=== PATIENT | male | born 1970 | race Caucasian/White ===

== ENCOUNTER 2023-08-18 21:00 | Inpatient (IN) | payer BC, SELFPAY ==
[2023-08-18 14:22] VITALS: BP 137/105
[2023-08-18 15:00] LABS: Urine Albumin Trace (Neg - Trace); Urine Bilirubin 1+ (Negative); Urine Character Clear (Clear); Urine Color Yellow; Urine Glucose 3+ (Negative); Urine Ketone 3+ (Negative); Urine Leukocyte Negative (Negative); Urine Nitrite Negative (Negative); Urine Occult Blood Negative (Negative); Urine Urobilinogen Negative (Neg - 1+)
[2023-08-18 15:44] VITALS: BMI 31.2
[2023-08-18 15:51] VITALS: BP 149/96
--- NOTE | 2023-08-18 15:51 | ED.GENMED ---
History of Present Illness
<Nicole Laurent WALLPAPER PRINTER - Last Filed: 08/18/23 22:34>
General
Chief Complaint: Abdominal Pain
Source: patient
Exam Limitations: none
Time Seen by Provider: 08/18/23 15:50
Nursing documentation reviewed up to this point in time: agreed with
Travel History
Have you had any contact with someone who has COVID-19?: No
Do you have any symptoms of coronavirus? Fever > 100 degrees, chills, cough, shortness of breath, sore throat, loss of taste or smell, muscle aches, or headache?: No
History of Present Illness
History of Present Illness:
53-year-old male with history of HTN, HLD, NIDDM presents stating 4 days ago he had a sudden onset 10/10 sharp pain across his lower abdomen. 2 days ago he awakened and the pain was gone but within a few hours it suddenly came back and has been
waxing and waning since. He had a normal bowel movement this morning. He took ibuprofen with no relief. He has no urinary symptoms. At this time the pain is 3/10. It is worse with cough and movement. He has left groin pain also. Denies
testicular pain. Denied fever, n/v/c/d
Past History
<Nicole Laurent, WALLPAPER PRINTER - Last Filed: 08/18/23 22:34>
Past History
ED Past Medical History: HTN, Hypercholesterolemia and NIDDM
ED Past Surgical History: None
Social History
Tobacco: Non-smoker
Alcohol: Occasional
Personal:
Living: with family
Employment: Employed
Review of Systems
<Nicole Laurent, WALLPAPER PRINTER - Last Filed: 08/18/23 22:34>
Review of Systems
Allergies reviewed?: Yes
All Other Systems: ROS reviewed and negative except as documented in HPI and ROS
Constitutional: Denies fever or chills
Respiratory: Denies trouble breathing
Cardiac: Denies chest pain
ABD/GI: Reports abdominal pain; Denies nausea, vomiting, diarrhea, constipated, bloody stools, black stools or anorexia
: Reports no symptoms
Musculoskeletal: Reports no symptoms
Skin: Reports no symptoms
Neurological: Reports no symptoms
Phy Exam
<Nicole Laurent, WALLPAPER PRINTER - Last Filed: 08/18/23 22:34>
Physical Exam
Physical Exam:
GENERAL: No acute distress. A&Ox3.
CONSTITUTIONAL: Afebrile.
EYES: Clear, conjunctivae normal
ENMT: moist mucus membranes, Pharynx nl
RESPIRATORY: Regular respirations, nonlabored, lungs clear.
CARDIOVASCULAR: Regular rate and rhythm, no murmurs, no rubs.
GI: Soft, mild tenderness across lower abdomen, tender left groin area to palpation. Nondistended, hypoactive bowel sounds.
MUSCULOSKELETAL: Moves with ease. Well perfused.
SKIN: Warm, dry, pink
PSYCH: Normal mood and affect. Well kept, interactive and appropriate
NEUROLOGIC: Awake, alert and oriented. No focal neurological deficits
Course
<Nicole Laurent, WALLPAPER PRINTER - Last Filed: 08/18/23 22:34>
Orders/Labs/Results
Orders:
Orders
08/18/23 Breakfast
NPO
Allow oral meds: Yes
Allow clear liquids: Sips of Clears
NPO with Ice Chips: Yes
08/18/23 14:30
Urinalysis Reflex To Culture Urgent
Date Specimen was Collected: 08/18/23
Time Specimen was Collected: 14:27
08/18/23 15:50
0.9% Sodium Chloride 1000 ml [Nss] 1,000 ml IV BOLUS
08/18/23 15:51
CT Abd/Pel (IV only)-DH only Urgent
Comment:
Reason For Exam: pain across lower abdomen
08/18/23 16:13
CMP [Comprehensive Metabolic Panel] Urgent
Complete Blood Count/With Diff Urgent
08/18/23 19:43
MetroNIDAZOLE 500 MG/100 ML [Flagyl 500 mg] 100 ml IV NOW
08/18/23 20:15
Piperacillin/Tazo 3.375 Gram [Zosyn] 3.375 gram in 50 ml IV NOW
08/18/23 20:16
ColoRectal Surgery Consult Urgent
Consulting Provider: Jose David Medrano
Was physician already notified: Yes
Reason for consult: severe diverticulitis with micro perf
08/18/23 20:24
Admit/Transfer Patient As Directed
Co-Sign Provider:
Level of Care: Inpatient admission
Assign to:: Medical/Surgical
Physician / Group: Htay
Diagnosis: Diverticulitis
Reason for Hospitalization: IV abx, Colorectal Consult
Expected length of stay greater than two midnights?: Yes
ELOS- Estimated Length of Stay in days: 3
I certify the patient meets the requirements for IP care: Yes
08/18/23 20:26
Code Status As Directed
Resuscitation Status: Full Code
08/18/23 21:51
0.9% Sodium Chloride 1000 ml [Nss] 1,000 ml IV 100 mls/hr
0.9% Sodium Chloride [Nss (Preservative Free)] See Protocol IV PRN PRN
Acetaminophen [Tylenol] 650 mg PO Q4HPRN PRN
Dextrose 50%-Water [Dextrose 50% Syringe] 12.5 grams IV [id number] PRN
FOLic ACID [Folvite] 1 mg 0.9% Sodium Chloride 50 ml [Nss] 50 ml IV DAILYPRN
Glucagon [GlucaGen] 1 mg IM PRN PRN
HYDROmorphone [Dilaudid] 0.25 mg IV Q3HPRN PRN
Lorazepam [Ativan] 1 mg IV Q1HPRN PRN
Lorazepam [Ativan] 1 mg PO Q2HPRN PRN
Lorazepam [Ativan] 2 mg IV Q1HPRN PRN
Ondansetron Injectable [Zofran] 4 mg IV Q6HPRN PRN
08/18/23 21:51
DIETARY CONSULT Routine
Reason for Consult: Nutrition support, possible refeeding guidelines
Activity As Directed
Activity Level: Out of Bed-Early Mobility
With Assistance
Bedside Glucose Monitoring As Directed
Frequency: AC&HS
Comment: Change to q6h if pt on TPN, tube feeding or not eating
I&O [Intake/ Output] As Directed
Frequency: q12h
MSAS SCORE As Directed
MSAS Score 0-4: Repeat MSAS every 2 hours until 0-4 for three consecutive assessments, then every 4 hours x 48
hours.
MSAS Score 5-7: For MILD withdrawl symptoms. Repeat MSAS and RASS every 2 hours
MSAS Score 8-11: For MODERATE withdrawal symptoms. Repeat MSAS and RASS every 1 hour. Consider ICU or IMU
level of care.
MSAS Score > 11: For SEVERE withdrawal symptoms. Repeat MSAS and RASS every 1 hour. Notify provider, consider
ICU level of care.
MSAS Additional Instructions: If no improvement or no decrease in score from severe to moderate within 12
hours, consult psychiatry
MSAS Notify Provider: Notify provider if patient requires more than 10 mg of Lorazepam in eight hour period.
Vital Signs As Directed
Frequency: Per unit guidelines
DX Deep Vein Thrombosis Video Routine
08/18/23 22:00
Melatonin 5 mg PO HS
08/19/23 04:00
Piperacillin/Tazo 3.375 Gram [Zosyn] 3.375 gram in 50 ml IV Q6H
08/19/23 06:00
Complete Blood Count/No Diff IN AM
Comprehensive Metabolic Panel IN AM
Glycohemoglobin (HgbA1c) IN AM
Magnesium IN AM
PTT IN AM
Phosphorus IN AM
Prothrombin Time IN AM
08/19/23 07:30
Insulin Aspart Corrective Low [Novolog Flexpen-Low Resistance] See Protocol SC AC
08/19/23 08:00
FOLic ACID [Folvite] 1 mg PO DAILY
Lisinopril [Zestril] 40 mg PO DAILY
Thiamine Injection 200 mg IV Q12
08/19/23 10:00
Case Management Consult Once
Case Management Consult: Other
Comment: Substance abuse counseling
08/19/23 18:00
Enoxaparin Sodium [Lovenox] 40 mg SC QPM
08/22/23 08:00
Thiamine HCl [Vitamin B1] 100 mg PO BID
Abnormal Lab Results
08/18/23 08/18/23
14:30 16:13
WBC 13.6 H 10^3/uL
(4.8-10.8)
MCH 31.8 H pg
(27.0-31.0)
Abs Immat Gran (auto) 0.1 H 10^3/uL
(0-0.05)
Absolute Neuts (auto) 9.1 H 10^3/uL
(1.4-6.5)
Absolute Monos (auto) 1.8 H 10^3/uL
(0.1-0.6)
Lymphocytes % 18.2 L %
(20.5-51.1)
Monocytes % 13.2 H %
(1.7-9.3)
Sodium 130 L mmol/L
(135-145)
Carbon Dioxide 19 L mmol/L
(22-30)
Creatinine 0.5 L mg/dL
(0.7-1.3)
Glucose 287 H mg/dl
(70-99)
Total Bilirubin 1.5 H mg/dl
(0.2-1.3)
Urine Ketones 3+ A
(Negative)
Urine Bilirubin 1+ A
(Negative)
Urine Glucose 3+ A
(Negative)
08/18/23 16:13
08/18/23 16:13
Vital Signs
Initial and Last Documented VS:
Initial Vital Signs
Temp Pulse Resp BP Pulse Ox
98.1 F 120 20 137/105 98
08/18/23 14:22 08/18/23 14:22 08/18/23 14:22 08/18/23 14:22 08/18/23 14:22
Last Documented Vital Signs
Temp Pulse Resp BP Pulse Ox
98.9 F 107 18 158/94 95
08/18/23 22:00 08/18/23 22:00 08/18/23 22:00 08/18/23 22:00 08/18/23 22:00
Spool Maker consulted with Physician
Spool Maker consulted with physician?: Yes
Name of Physician Consulted: Sonya
<Valeriano Hassan, DO - Last Filed: 08/18/23 20:04>
Orders/Labs/Results
Orders:
Orders
08/18/23 Breakfast
NPO
Allow oral meds: Yes
Allow clear liquids: Sips of Clears
NPO with Ice Chips: Yes
08/18/23 14:30
Urinalysis Reflex To Culture Urgent
Date Specimen was Collected: 08/18/23
Time Specimen was Collected: 14:27
08/18/23 15:50
0.9% Sodium Chloride 1000 ml [Nss] 1,000 ml IV BOLUS
08/18/23 15:51
CT Abd/Pel (IV only)-DH only Urgent
Comment:
Reason For Exam: pain across lower abdomen
08/18/23 16:13
CMP [Comprehensive Metabolic Panel] Urgent
Complete Blood Count/With Diff Urgent
08/18/23 19:43
MetroNIDAZOLE 500 MG/100 ML [Flagyl 500 mg] 100 ml IV NOW
08/18/23 20:15
Piperacillin/Tazo 3.375 Gram [Zosyn] 3.375 gram in 50 ml IV NOW
08/18/23 20:16
ColoRectal Surgery Consult Urgent
Consulting Provider: Jose David Medrano
Was physician already notified: Yes
Reason for consult: severe diverticulitis with micro perf
08/18/23 20:24
Admit/Transfer Patient As Directed
Co-Sign Provider:
Level of Care: Inpatient admission
Assign to:: Medical/Surgical
Physician / Group: Rayy
Diagnosis: Diverticulitis
Reason for Hospitalization: IV abx, Colorectal Consult
Expected length of stay greater than two midnights?: Yes
ELOS- Estimated Length of Stay in days: 3
I certify the patient meets the requirements for IP care: Yes
08/18/23 20:26
Code Status As Directed
Resuscitation Status: Full Code
08/18/23 21:51
0.9% Sodium Chloride 1000 ml [Nss] 1,000 ml IV 100 mls/hr
0.9% Sodium Chloride [Nss (Preservative Free)] See Protocol IV PRN PRN
Acetaminophen [Tylenol] 650 mg PO Q4HPRN PRN
Dextrose 50%-Water [Dextrose 50% Syringe] 12.5 grams IV [id number] PRN
FOLic ACID [Folvite] 1 mg 0.9% Sodium Chloride 50 ml [Nss] 50 ml IV DAILYPRN
Glucagon [GlucaGen] 1 mg IM PRN PRN
HYDROmorphone [Dilaudid] 0.25 mg IV Q3HPRN PRN
Lorazepam [Ativan] 1 mg IV Q1HPRN PRN
Lorazepam [Ativan] 1 mg PO Q2HPRN PRN
Lorazepam [Ativan] 2 mg IV Q1HPRN PRN
Ondansetron Injectable [Zofran] 4 mg IV Q6HPRN PRN
08/18/23 21:51
DIETARY CONSULT Routine
Reason for Consult: Nutrition support, possible refeeding guidelines
Activity As Directed
Activity Level: Out of Bed-Early Mobility
With Assistance
Bedside Glucose Monitoring As Directed
Frequency: AC&HS
Comment: Change to q6h if pt on TPN, tube feeding or not eating
I&O [Intake/ Output] As Directed
Frequency: q12h
MSAS SCORE As Directed
MSAS Score 0-4: Repeat MSAS every 2 hours until 0-4 for three consecutive assessments, then every 4 hours x 48
hours.
MSAS Score 5-7: For MILD withdrawl symptoms. Repeat MSAS and RASS every 2 hours
MSAS Score 8-11: For MODERATE withdrawal symptoms. Repeat MSAS and RASS every 1 hour. Consider ICU or IMU
level of care.
MSAS Score > 11: For SEVERE withdrawal symptoms. Repeat MSAS and RASS every 1 hour. Notify provider, consider
ICU level of care.
MSAS Additional Instructions: If no improvement or no decrease in score from severe to moderate within 12
hours, consult psychiatry
MSAS Notify Provider: Notify provider if patient requires more than 10 mg of Lorazepam in eight hour period.
Vital Signs As Directed
Frequency: Per unit guidelines
DX Deep Vein Thrombosis Video Routine
08/18/23 22:00
Melatonin 5 mg PO HS
08/19/23 04:00
Piperacillin/Tazo 3.375 Gram [Zosyn] 3.375 gram in 50 ml IV Q6H
08/19/23 06:00
Complete Blood Count/No Diff IN AM
Comprehensive Metabolic Panel IN AM
Glycohemoglobin (HgbA1c) IN AM
Magnesium IN AM
PTT IN AM
Phosphorus IN AM
Prothrombin Time IN AM
08/19/23 07:30
Insulin Aspart Corrective Low [Novolog Flexpen-Low Resistance] See Protocol SC AC
08/19/23 08:00
FOLic ACID [Folvite] 1 mg PO DAILY
Lisinopril [Zestril] 40 mg PO DAILY
Thiamine Injection 200 mg IV Q12
08/19/23 10:00
Case Management Consult Once
Case Management Consult: Other
Comment: Substance abuse counseling
08/19/23 18:00
Enoxaparin Sodium [Lovenox] 40 mg SC QPM
08/22/23 08:00
Thiamine HCl [Vitamin B1] 100 mg PO BID
Abnormal Lab Results
08/18/23 08/18/23
14:30 16:13
WBC 13.6 H 10^3/uL
(4.8-10.8)
MCH 31.8 H pg
(27.0-31.0)
Abs Immat Gran (auto) 0.1 H 10^3/uL
(0-0.05)
Absolute Neuts (auto) 9.1 H 10^3/uL
(1.4-6.5)
Absolute Monos (auto) 1.8 H 10^3/uL
(0.1-0.6)
Lymphocytes % 18.2 L %
(20.5-51.1)
Monocytes % 13.2 H %
(1.7-9.3)
Sodium 130 L mmol/L
(135-145)
Carbon Dioxide 19 L mmol/L
(22-30)
Creatinine 0.5 L mg/dL
(0.7-1.3)
Glucose 287 H mg/dl
(70-99)
Total Bilirubin 1.5 H mg/dl
(0.2-1.3)
Urine Ketones 3+ A
(Negative)
Urine Bilirubin 1+ A
(Negative)
Urine Glucose 3+ A
(Negative)
08/18/23 16:13
08/18/23 16:13
Vital Signs
Initial and Last Documented VS:
Initial Vital Signs
Temp Pulse Resp BP Pulse Ox
98.1 F 120 20 137/105 98
08/18/23 14:22 08/18/23 14:22 08/18/23 14:22 08/18/23 14:22 08/18/23 14:22
Last Documented Vital Signs
Temp Pulse Resp BP Pulse Ox
98.9 F 107 18 158/94 95
08/18/23 22:00 08/18/23 22:00 08/18/23 22:00 08/18/23 22:00 08/18/23 22:00
<Nicole Laurent, WALLPAPER PRINTER - Last Filed: 08/18/23 22:34>
MDM/Problems Addressed
Differential Diagnosis Includes:
intermittent bowel torsion, hernia
MDM/Problems Addressed:
53-year-old male with history of HTN, HLD, NIDDM presents stating 4 days ago he had a sudden onset 10/10 sharp pain across his lower abdomen. 2 days ago he awakened and the pain was gone but within a few hours it suddenly came back and has been
waxing and waning since. He had a normal bowel movement this morning. He took ibuprofen with no relief. He has no urinary symptoms. At this time the pain is 3/10. It is worse with cough and movement. He has left groin pain also. Denies
testicular pain. Denied fever, n/v/c/d
Afebrile, NAD
08/18/2023 1659 PM
CBC: WBC 13.6
CMP: Sodium 130
UA: +3 ketones, +3 glucose otherwise negative
08/18/2023 1945 PM
CAT scan abdomen pelvis with IV only contrast radiology text read: severe diverticulitis of the sigmoid colon. Small focus of contained extra luminal air anterior in the pelvis. Two small foci of free air along the superior liver in the right of
quadrant.
08/18/2023 2018 PM
Discussed case with Dr. Hassan who spoke with patient.
Stable, comfortable 53-year-old with severe diverticulitis with microperforation.
Plan: Admit, colorectal surgery consulted. Hospitalist notified of admission.
<Nicole Laurent, WALLPAPER PRINTER - Last Filed: 08/18/23 22:34>
*Critical Care Note
Total Time (30-74mins, 75-104mins- exclusive of procedures): Not Applicable
ED Attending Note
<Nicole Laurent WALLPAPER PRINTER - Last Filed: 08/18/23 22:34>
-
Portions of this chart may have been created with voice recognition software.� Occasional wrong word or��sound alike� substitutions may have occurred due to the inherent limitations of voice recognition software.
<Valeriano Hassan DO - Last Filed: 08/18/23 20:04>
ED Attending Note
Patient seen and examined by attending physician: Yes
I performed the substantive portion of visit, reviewed & personally made and approve the management plan that is documented in note by myself or SWATI.: Yes
ED Attending Note:
Seen with WALLPAPER PRINTER examined independently 53-year-old male third episode of diverticulitis blood sugars are up has been on metformin CAT scan reported, believe will be prudent to admit him to the hospital IV antibiotics serial abdominal exams
consideration for specialty consultation
Discharge Plan
Departure
Patient Disposition: Admit
Admit to: Med/Surg
Presentation/result/management discussed w/ accepting MD/DO: Hospitalist
Condition: Serious
Discharge Problem:
Abdominal pain
Interventions
Interventions:
*Risk Screen - Suicide Last Done: 08/18/23 22:24
*General Assessment Last Done: 08/18/23 14:22
*Neglect/Abuse Screening Last Done: 08/18/23 14:22
ED- Fall Risk Assessment Last Done: 08/18/23 15:44
*ED COVID-19 Vaccine History Last Done: 08/18/23 22:18
*Nursing Disposition Last Done: 08/18/23 22:01
DF-Pbwxah-Zpwxsqiscv Assessment Last Done: 08/18/23 15:44
Discharge Date and Time
Discharge Date/Time: 08/18/23 22:01
[2023-08-18 16:00] VITALS: BP 127/102
[2023-08-18] MEDS: NSS 1000 IV ×2 (16:14→22:30)
[2023-08-18 16:36] LABS: % Basophils 0.5 % (0-2); % Eosinophils 0.7 % (0-6); % Immature Granulocytes 0.4 % (0-0.5); % Lymphocytes 18.2 % (20.5-51.1); % Monocytes 13.2 % (1.7-9.3); Absolute Basophils 0.1 10^3/uL (0-0.2); Absolute Eosinophils 0.1 10^3/uL (0-0.7); Absolute Immature Granulocytes 0.1 10^3/uL (0-0.05); Absolute Lymphocytes 2.5 10^3/uL (1.2-3.4); Absolute Monocytes 1.8 10^3/uL (0.1-0.6); Absolute Neutrophils 9.1 10^3/uL (1.4-6.5); Hematocrit 43.4 % (39.0-52.0); Hemoglobin 15.6 g/dL (13.0-18.0); Mean Corp Hgb Conc. 35.9 g/dL (33.0-37.0); Mean Corpuscular Hgb 31.8 pg (27.0-31.0); Mean Corpuscular Volume 88.4 fL (80.0-94.0); Mean Platelet Volume 10.1 fL (7.4-10.4); Nucleated Red Blood Cells % 0 % (-); Platelet Count 232 10^3/uL (130-400); Red Blood Cell Count 4.91 10^6/uL (4.70-6.10); Red Cell Dist. Width 11.7 % (11.5-14.5); White Blood Cell Count 13.6 10^3/uL (4.8-10.8)
[2023-08-18 16:52] LABS: ALT (SGPT) 27 U/L (0-50); AST (SGOT) 21 U/L (17-59); Alkaline Phosphatase 79 U/L (38-126); Blood Urea Nitrogen 13 mg/dl (9-20); Calcium 9.2 mg/dl (8.4-10.2); Carbon Dioxide 19 mmol/L (22-30); Chloride 100 mmol/L (98-107); Estimated Creatinine Clearance > 125 ml/min; Glucose 287 mg/dl (70-99); Potassium 4.1 mmol/L (3.5-5.1); Sodium 130 mmol/L (135-145); Total Bilirubin 1.5 mg/dl (0.2-1.3); Total Protein 6.5 g/dl (6.3-8.2); eGFR > 60.00
[2023-08-18 17:00] VITALS: BP 138/83
--- NOTE | 2023-08-18 20:31 | HPS.HSE ---
Addendum entered and electronically signed by Mansoor Arguello MD 08/18/23 21:14:
I saw and examined the patient.
The MEMBER [employer] or PA's note was reviewed and I agree with the note.
Comment:
HPI
53M Diabetic, remote HX sigmoid diverticulitis 15 yrs ago pw acute lower abdominal pain since Thursday night, improved o Thursday. Then recurrence of abdominal pain. No vomiting. No fever.
Other HX HTN, HLD.
Forme smoker at age of 20
Daily Wine 4- 5 a night
Sinus tachy on arrival. Normotensive
Not toxic looking
Lower abdominal temderness
No signs of peritonism
WCC 13.5
Na 130 corrcted Na 13 for BG 287
CO2 19
nl Cr
TB 1.5
[address] :
severe changes of diverticulitis involving the sigmoid colon in the central and left pelvis. There is a small focus of contained extraluminal air anteriorly within the pelvis. There are small foci of free intraperitoneal air along the superior
margin of the liver in the right upper quadrant.
A & P
Second episode of acute sigmoid diverticulitis complicated probably microperforation .
POS Small foci of free intraperitoneal air
Remote HX sigmoid diverticulitis 15 yrs ago
HX NIDDM
HTN
HLD
- NPO and IVF
- Empiric IV Zosyn
- PRN Narcotic analgesia
- PRN anti emetics
- cont Lisinopril
- add IS low
- CRS consulted
ETOH dily use disorder of 4-5 glasses wine
nl LFTs
- MSAS
DVT Px LMWH
IP MS
Full code
Original Note:
Family Physician
-
Family Physician: Adair Clayton, DO
Chief Complaint
-
Abdominal Pain
History of Present Illness
Pt is a 53yo M w/ a PMH of HTN, HLD, DMII, Anxiety, and Alcohol Use Disorder who is presenting to the ED c/o lower abdominal pain x 5 days. He states he was making dinner on Thursday night and experienced sudden onset penile pain which he described as
a sharp, shooting pain that was an 8/10 at onset and improved to a 3/10 by Thursday night. He states that Thursday he began feeling nauseous but did not vomit and admits to chills that day as well which have since resolved. He states the pain began
radiating to the lower abdomen on Thursday night and states it is a 1/10 at rest and a 3/10 at worst with movement. He denies similar episodes. He denies fever, vomiting, constipation or diarrhea. He denies prior episode of diverticulitis. He admits
to having had Cologuard performed, but never a colonoscopy.
Medical History
Past Medical History
Past Medical History: Reports Other
Additional Past Medical History:
Essential Hypertension
Hyperlipidemia
Diabetes Mellitus, Type II
Past Surgical History: Reports None
Social History
Tobacco: Non-smoker
Alcohol: Daily (4-5 glasses of wine per night)
Family History
Family History: Not pertinent
Allergies / Home Medications
Allergies reflects when Allergies were last updated in [employer].
Home Medications with original date entered in [employer]
Allergy/Medication List:
Allergies
Allergy/AdvReac Type Severity Reaction Status Date / Time
No Known Allergies Allergy Unverified 08/18/23 14:22
Home Medications
atorvastatin 20 mg tablet (Lipitor) 20 mg PO DAILY 08/18/23
ibuprofen 200 mg tablet (Advil) 400 mg PO Q6H PRN mild pain 08/18/23
ibuprofen-diphenhydramine citrate 200 mg-38 mg tablet (Advil PM) 1 cap PO HSPRN PRN sleep 08/18/23
lisinopril 40 mg tablet 40 mg PO DAILY 08/18/23
lorazepam 0.5 mg tablet 0.5 mg PO DAILYPRN PRN anxiety 08/18/23
metformin 500 mg tablet,extended release 24 hr 500 mg PO DAILY 08/18/23
Review of Systems
-
A 12 point ROS was completed and negative except as noted: Yes
Constitutional: Reports Chills
Respiratory: Denies Cough or Trouble Breathing
Cardiac: Denies Chest Pain or Palpitations
Abdomen/GI: Reports See HPI
Physical Exam
Vital Signs
Vital Signs
Temp Pulse Resp BP Pulse Ox
98.1 F 104 23 138/83 98
08/18/23 14:22 08/18/23 17:30 08/18/23 17:30 08/18/23 17:00 08/18/23 14:22
Physical Exam
General: Comfortable and Conversant
HEENT: Anicteric and Moist mucous membranes
Respiratory: Clear and Non Labored Respirations
Cardiac: S1/S2, Regular Rhythm and Tachycardia (Slightly)
GI: Soft and Tender (Bilateral lower quadrants left greater than right)
Rectal: Deferred by Provider
Musculoskeletal: No Clubbing, No Cyanosis and No Edema
Skin: Warm and Dry
Neuro: Awake, Alert, Oriented and Nonfocal/grossly intact
Psych: Calm
Laboratory Results
-
08/18/23 16:13
08/18/23 16:13
Laboratory Results
Total Bilirubin 1.5 mg/dl (0.2-1.3) H 08/18/23 16:13
AST 21 U/L (17-59) 08/18/23 16:13
ALT 27 U/L (0-50) 08/18/23 16:13
Alkaline Phosphatase 79 U/L (38-126) 08/18/23 16:13
Data Reviewed
-
CT Scan: Report Reviewed by me
Lab Data: Labs Reviewed by me
Impression/Plan
-
Sepsis secondary to Acute Diverticulitis
-Consult Colorectal Surgery
-Continue NPO/IVFs
-Continue Zosyn
Essential Hypertension
-Continue lisinopril with hold parameters
Hyperlipidemia
-Hold atorvastatin until able to resume diet
Diabetes Mellitus, Type II
-Hold metformin
-Monitor sugars and continue coverage insulin
Alcohol Use Disorder
-Continue thiamine and folic acid
-Continue alcohol withdrawal protocol
DVT proph: Lovenox
Code Status: Full Code
[2023-08-18] MEDS: ZOSYN 50 IV (21:36)
[2023-08-18 22:00] VITALS: BP 158/94; BMI 31.2
--- NOTE | 2023-08-18 22:13 | CON.CRS ---
Consultation
-
Performing Provider: Jose David Medrano MD
Reason for Consultation: perforated diverticulitis
Medical History
-
History of Present Illness:
Patient is a 53-year-old male with a PMH of HTN, HLD, daily EtOH (admits to being an alcoholic and drinking about 4 glasses of wine per day; he knows he should not but continues; has quit for period of 1 to 2 months without symptoms of withdrawal),
prior episode of diverticulitis 15 years ago who presents with acute sudden onset abdominal pain 4 days ago. The pain was in the lower abdomen and radiated to the groin. The pain initially got better but then returned on Thursday, so he went to see
his PCP yesterday. He was recommended to be evaluated in the ED. He denies any fevers, N/V, urinary symptoms, change in bowel habits. In the ED, WBC was 13.6, CT showing acute severe diverticulitis with localized contained perforation as well as
flecks of air over the liver. He was initially tachycardic at 120 but improved to the low 100s. He has never had a colonoscopy. He had a Cologuard test in 2020 which was negative.
Past Medical History
Past Medical History: Other (As above)
Past Surgical History: Other (Cervical spine fusion)
Social History
Tobacco: Former Smoker (Smoked for 9 years, 0.5 PPD, quit at age 21)
Alcohol: Daily (4 drinks per day, admits to being an alcoholic)
Employment: Employed
Family History
Family History: Other (Cousin with prostate cancer, grandfather with leukemia)
Allergies / Home Medications
Allergy/AdvReac Type Severity Reaction Status Date / Time
No Known Allergies Allergy Unverified 08/18/23 14:22
Medication Instructions Recorded Confirmed Type
atorvastatin 20 mg tablet (Lipitor) 20 mg PO DAILY 08/18/23 08/18/23 History
ibuprofen 200 mg tablet (Advil) 400 mg PO Q6H PRN mild pain 08/18/23 08/18/23 History
ibuprofen-diphenhydramine citrate 1 cap PO HSPRN PRN sleep 08/18/23 08/18/23 History
200 mg-38 mg tablet (Advil PM)
lisinopril 40 mg tablet 40 mg PO DAILY 08/18/23 08/18/23 History
lorazepam 0.5 mg tablet 0.5 mg PO DAILYPRN PRN anxiety 08/18/23 08/18/23 History
metformin 500 mg tablet,extended 500 mg PO DAILY 08/18/23 08/18/23 History
release 24 hr
Review of Systems
-
All other systems: Negative unless noted
A 10 point review of systems was completed, and was negative except as per HPI.
Physical Exam
Vital Signs
Temp 98.9 F 08/18/23 22:00
Pulse 107 08/18/23 22:00
Resp Rate 18 08/18/23 22:00
Blood pressure 158/94 08/18/23 22:00
SaO2 95 08/18/23 22:00
08/17/23 08/18/23 08/19/23
06:59 06:59 06:59
Actual Weight 95.765 kg
Body Mass Index (BMI) 31.2
Lab Results / Allergies
08/18/23 16:13
08/18/23 16:13
WBC 13.6 10^3/uL (4.8-10.8) H 08/18/23 16:13
Hgb 15.6 g/dL (13.0-18.0) 08/18/23 16:13
Hct 43.4 % (39.0-52.0) 08/18/23 16:13
Plt Count 232 10^3/uL (130-400) 08/18/23 16:13
Abs Immat Gran (auto) 0.1 10^3/uL (0-0.05) H 08/18/23 16:13
Neutrophils % 67.0 % (42.2-75.2) 08/18/23 16:13
Allergy/AdvReac Type Severity Reaction Status Date / Time
No Known Allergies Allergy Unverified 08/18/23 14:22
Physical Exam
General: No Apparent Distress and Comfortable
HEENT: Normocephalic and Atraumatic
Respiratory: Non Labored Respirations
GI: Soft, Non Distended and Tender (Mildly to moderately tender in the RLQ to suprapubic region, no rebound or guarding)
Skin: Warm and Dry
Neuro: AO x 3
Data Reviewed
-
CT Scan: Image Personally Visualized and interpreted, Discussed with Physician and Discussed with Patient
Labs: Labs Reviewed by me and Discussed with Patient
Assessment / Plan
-
53-year-old male with a PMH of HTN, HLD, daily EtOH (admits to being an alcoholic and drinking about 4 glasses of wine per day; he knows he should not but continues; has quit for period of 1 to 2 months without symptoms of withdrawal), prior episode
of diverticulitis 15 years ago who presents with acute sudden onset abdominal pain 4 days ago. The pain was in the lower abdomen and radiated to the groin. The pain initially got better but then returned on Thursday, so he went to see his PCP
yesterday. He was recommended to be evaluated in the ED. He denies any fevers, N/V, urinary symptoms, change in bowel habits. In the ED, WBC was 13.6, CT showing acute severe diverticulitis with localized contained perforation as well as flecks
of air over the liver. He was initially tachycardic at 120 but improved to the low 100s. He has never had a colonoscopy. He had a Cologuard test in 2020 which was negative
�No acute surgical intervention currently indicated; attempted trial of nonoperative management
� N.p.o. with IV fluids, okay for p.o. meds
� Pain control, recommend Tylenol and Toradol, reserve narcotics for breakthrough
� Agree with IV Zosyn
� OOB/IS
� Discussed the pathophysiology and treatment options for uncomplicated versus complicated diverticulitis; explained the risks of urgent surgery and nonoperative management, including the increased risks of needing an open surgery and ostomy
creation with urgent surgery and risks of failure of nonoperative management; the patient understood and all questions were answered
� Appreciate hospitalist
[2023-08-18] MEDS: MELATONIN 5 MG PO (22:35)
--- NOTE | 2023-08-18 22:40 | PTCARENOTE ---
Received patient from ED via stretcher; [facility] orders. VSS. No c/o pain. MSAS per protocol. PMH and medications reviewed by this RN and patient. Plan of care reviewed. Call garcia within reach.
[2023-08-18] MEDS: AMBIEN 5 MG PO (23:39)
[2023-08-18] MEDS: DESYREL 25 MG PO (23:53)
[2023-08-19 00:40] LABS: Glucose - Point of Care 193 mg/dl (70-99)
[2023-08-19 00:44] VITALS: BP 122/71
[2023-08-19 03:00] VITALS: BP 137/82
[2023-08-19] MEDS: ZOSYN 50 IV ×4 (03:00→22:30)
--- NOTE | 2023-08-19 04:19 | DOWNTIME ---
There was a [employer] Chief [employer] Downtime on 08/19/2023 from 0111 to 08/19/2023 at 0405. Downtime documentation of patient's care, including medication administrations, has been reconciled in the electronic record per guidelines. Refer to the
patient's paper chart under the miscellaneous tab to see printed paper medication records and downtime forms.
[2023-08-19 05:35] LABS: Glucose - Point of Care 222 mg/dl (70-99)
[2023-08-19 05:57] LABS: Hematocrit 40.6 % (39.0-52.0); Hemoglobin 14.2 g/dL (13.0-18.0); Mean Corpuscular Volume 88.6 fL (80.0-94.0); Platelet Count 212 10^3/uL (130-400); Red Blood Cell Count 4.58 10^6/uL (4.70-6.10); Red Cell Dist. Width 11.8 % (11.5-14.5); White Blood Cell Count 11.9 10^3/uL (4.8-10.8)
[2023-08-19 06:07] LABS: INR 1.23; PT 15.3 Sec (11.4-14.6)
[2023-08-19] MEDS: NOVOLOG FLEXPEN-LOW RESISTANCE 2 UNITS SC ×2 (06:07→12:44)
[2023-08-19 06:08] LABS: APTT 32.3 Sec (23.4-35.0)
[2023-08-19 06:41] LABS: ALT (SGPT) 17 U/L (0-50); AST (SGOT) 18 U/L (17-59); Albumin 3.1 g/dl (3.5-5.0); Alkaline Phosphatase 59 U/L (38-126); Blood Urea Nitrogen 11 mg/dl (9-20); Calcium 8.6 mg/dl (8.4-10.2); Carbon Dioxide 21 mmol/L (22-30); Chloride 102 mmol/L (98-107); Estimated Creatinine Clearance > 125 ml/min; Glucose 242 mg/dl (70-99); Magnesium 1.8 mg/dl (1.6-2.3); Potassium 4.1 mmol/L (3.5-5.1); Sodium 133 mmol/L (135-145); Total Bilirubin 1.7 mg/dl (0.2-1.3); Total Protein 5.4 g/dl (6.3-8.2); eGFR > 60.00
[2023-08-19 07:58] VITALS: BP 138/90
[2023-08-19] MEDS: THIAMINE INJECTION 200 MG IV ×2 (08:55→20:15)
[2023-08-19] MEDS: FOLVITE 1 MG PO (08:55)
[2023-08-19] MEDS: NSS 1000 IV ×2 (08:55→17:58)
[2023-08-19] MEDS: ZESTRIL 40 MG PO (08:56)
[2023-08-19 08:59] LABS: Glycohemoglobin (HgbA1c) 10.3 % (4.0-5.6)
--- NOTE | 2023-08-19 09:45 | W.PN.CRS1 ---
Today's Communication / Plan
-
Continue n.p.o.
IV antibiotics
Assessment/Plan
-
Assessment: 53-year-old male with 1 prior episode of diverticulitis with now acute severe diverticulitis with localized contained perforation as well as flecks of free air over the liver, tachycardia now improved and WBC down to 11.9.
Plan:
1. Continue n.p.o. status with sips and chips today given minimal improvement.
2. Continue IV antibiotics.
3. IV fluids while NPO.
4. The patient expressed that he would like to go home today, however we discussed the risks of leaving prior to 24 hours as he still requires IV antibiotics and close observation. The patient will consider this. We recommend at least another day
or two in the hospital at this time.
5. No acute surgical intervention at this time but if he were to worsen he will require a colectomy with colostomy creation.
Subjective Data
Subjective Data
Date of Service: August 19, 2023
Patient states that not much has improved since his admission. He has no nausea or vomiting. He is urinating no difficulty. He has no flatus or bowel movements yet. He did not require pain medication overnight.
Objective Data
-
Vital Signs
Temp Pulse Resp BP Pulse Ox
97.5 F 98 18 138/90 95
08/19/23 07:58 08/19/23 08:56 08/19/23 07:58 08/19/23 08:56 08/19/23 07:58
Intake & Output
08/18/23 08/19/23 08/20/23
06:59 06:59 06:59
Intake Total 850 / 850
Balance 850 / 850
Intake:
IV fluids (Total) 800 / 800
IV piggybacks 50 / 50
Lab Results
08/19/23 05:22
08/19/23 05:22
Physical Exam
-
General: No Acute Distress and AOx3
Abdomen: Soft, Non Distended and Tender (Suprapubic region, mildly tender)
Skin: Warm and Dry
--- NOTE | 2023-08-19 10:21 | W.PN.HOSP.TC ---
Today's Communication/Plan
-
Monitor vital signs and see plan
Pain control, fluids
N.p.o.
Monitor for alcohol withdrawal
abx
blood cultures
Assessment / Plan
Assessment / Plan
General: Comfortable and Conversant
HEENT: Anicteric and Moist mucous membranes
Respiratory: Clear, no wheezing
Cardiac: S1/S2, Regular Rhythm
GI: Soft and Tender (mild LLQ)
Musculoskeletal: No Edema
Neuro: Awake, Alert, Oriented and Nonfocal/grossly intact
Psych: Calm
Sepsis secondary to Acute Diverticulitis
no bcx checked on admission; check bcx
-Consult Colorectal Surgery following
-Continue NPO/IVFs
-Continue Zosyn
Essential Hypertension
-Continue lisinopril with hold parameters
Hyponatremia
monitor
Hyperlipidemia
-Hold atorvastatin until able to resume diet
Diabetes Mellitus, Type II
-Hold metformin
-Monitor sugars and continue coverage insulin
A1c 10.3
Alcohol Use Disorder
-Continue thiamine and folic acid
-Continue alcohol withdrawal protocol
DVT proph: Lovenox
Code Status: Full Code
Anticipated Discharge: 24 - 48 hours
Subjective/Interval History
-
Date of Service: August 19, 2023
denies abdominal pain
Objective Data
-
Labs:
Laboratory Results
08/19/23
05:22
WBC 11.9 H
Hgb 14.2
Hct 40.6
Plt Count 212
PT 15.3 H
INR 1.23
APTT 32.3
Sodium 133 L
Potassium 4.1
Chloride 102
Carbon Dioxide 21 L
BUN 11
Creatinine 0.5 L
Glucose 242 H
Calcium 8.6
Total Bilirubin 1.7 H
AST 18
ALT 17
Alkaline Phosphatase 59
Vital Signs:
Vital Signs
Temp Pulse Resp BP Pulse Ox
97.5 F 98 18 138/90 95
08/19/23 07:58 08/19/23 08:56 08/19/23 07:58 08/19/23 08:56 08/19/23 07:58
I&O
08/18/23 08/19/23 08/20/23
06:59 06:59 06:59
Intake Total 850 / 850
Balance 850 / 850
[2023-08-19 11:27] LABS: Glucose - Point of Care 213 mg/dl (70-99)
[2023-08-19 13:30] VITALS: BP 135/80
--- NOTE | 2023-08-19 15:21 | CM ---
Chart reviewed. Spoke with pt at bedside
Pt lives in 2 story home with and daughter
Employed FT, drives
Denies DME. Denies pas SNF/HH
PCP - Dr Frances Clayton
Pharm - [facility]
Has ride at d/c
Declined out patient rehab services/info when offered
Plan -Anticipate home - no needs
[2023-08-19 15:32] VITALS: BP 145/83
[2023-08-19 17:33] LABS: Glucose - Point of Care 189 mg/dl (70-99)
[2023-08-19] MEDS: LOVENOX 40 MG SC (18:00)
[2023-08-19] MEDS: NOVOLOG FLEXPEN-LOW RESISTANCE 1 UNITS SC ×2 (18:01→23:24)
[2023-08-19] MEDS: MELATONIN PO (22:28)
[2023-08-19] MEDS: AMBIEN 5 MG PO (23:13)
[2023-08-19 23:19] LABS: Glucose - Point of Care 170 mg/dl (70-99)
[2023-08-19 23:58] VITALS: BP 128/91
[2023-08-20] MEDS: NSS 1000 IV ×2 (03:28→15:30)
[2023-08-20] MEDS: ZOSYN 50 IV ×4 (03:28→22:01)
[2023-08-20 05:14] LABS: % Basophils 0.7 % (0-2); % Eosinophils 1.9 % (0-6); % Immature Granulocytes 0.7 % (0-0.5); % Lymphocytes 21.3 % (20.5-51.1); % Monocytes 12.1 % (1.7-9.3); % Neutrophils 63.3 % (42.2-75.2); Absolute Basophils 0.1 10^3/uL (0-0.2); Absolute Eosinophils 0.2 10^3/uL (0-0.7); Absolute Immature Granulocytes 0.1 10^3/uL (0-0.05); Absolute Lymphocytes 2.3 10^3/uL (1.2-3.4); Absolute Monocytes 1.3 10^3/uL (0.1-0.6); Absolute Neutrophils 6.8 10^3/uL (1.4-6.5); Hematocrit 39.5 % (39.0-52.0); Hemoglobin 13.7 g/dL (13.0-18.0); Mean Corp Hgb Conc. 34.7 g/dL (33.0-37.0); Mean Corpuscular Hgb 31.8 pg (27.0-31.0); Mean Corpuscular Volume 91.6 fL (80.0-94.0); Mean Platelet Volume 9.8 fL (7.4-10.4); Nucleated Red Blood Cells % 0 % (-); Platelet Count 187 10^3/uL (130-400); Red Blood Cell Count 4.31 10^6/uL (4.70-6.10); Red Cell Dist. Width 11.6 % (11.5-14.5); White Blood Cell Count 10.7 10^3/uL (4.8-10.8)
[2023-08-20 05:33] LABS: Glucose - Point of Care 175 mg/dl (70-99)
[2023-08-20 05:37] LABS: ALT (SGPT) 16 U/L (0-50); AST (SGOT) 19 U/L (17-59); Albumin 3.1 g/dl (3.5-5.0); Alkaline Phosphatase 59 U/L (38-126); Blood Urea Nitrogen 9 mg/dl (9-20); Calcium 8.4 mg/dl (8.4-10.2); Carbon Dioxide 23 mmol/L (22-30); Chloride 106 mmol/L (98-107); Estimated Creatinine Clearance > 125 ml/min; Glucose 165 mg/dl (70-99); Potassium 4.1 mmol/L (3.5-5.1); Sodium 136 mmol/L (135-145); Total Bilirubin 1.3 mg/dl (0.2-1.3); Total Protein 5.5 g/dl (6.3-8.2); eGFR > 60.00
[2023-08-20] MEDS: NOVOLOG FLEXPEN-LOW RESISTANCE 1 UNITS SC (06:01)
[2023-08-20 07:06] VITALS: BP 149/93
[2023-08-20] MEDS: FOLVITE 1 MG PO (07:43)
[2023-08-20] MEDS: THIAMINE INJECTION 200 MG IV ×2 (07:43→20:31)
[2023-08-20] MEDS: ZESTRIL 40 MG PO (07:43)
--- NOTE | 2023-08-20 08:48 | W.PN.CRS1 ---
Addendum entered and electronically signed by Jad Rubio MD 08/20/23 15:32:
I saw and examined the patient.
The PA's note was reviewed and I agree with the note.
Comment:
Patient seen in a.m. with PA.
[place] improved. Less discomfort. Hungry.
Vitals and blood work reasonable. White blood cell count normalized.
Abdomen with minimal tenderness.
Started on clears with anticipation of diet advancement.
Original Note:
Today's Communication / Plan
-
start on clears
possibly fulls later today if tolerates
Assessment/Plan
-
Assessment: 53-year-old male with 1 prior episode of diverticulitis with now acute severe diverticulitis with localized contained perforation as well as flecks of free air over the liver, tachycardia now improved and WBC down to 10.7
Plan:
1.� Advance diet to clear liquids. If tolerates, can advance to fulls for dinner.
2.� Continue IV antibiotics.
3.� Blood cultures pending.
4.� The patient expressed that he would like to go home today. We recommend at least another day for antibiotics/diet advancement.
5.� No acute surgical intervention at this time but if he were to worsen he will require a colectomy with colostomy creation.
Subjective Data
Subjective Data
Date of Service: August 20, 2023
Patient states he feels much better today. He has no nausea or vomiting. He has some LLQ pain but is more like a 'soreness'.
Objective Data
-
Vital Signs
Temp Pulse Resp BP Pulse Ox
98.8 F 89 16 149/93 96
08/20/23 07:06 08/20/23 07:43 08/20/23 07:06 08/20/23 07:43 08/20/23 07:06
Intake & Output
08/19/23 08/20/23 08/21/23
06:59 06:59 06:59
Intake Total 850 / 850 2550 / 2550
Balance 850 / 850 2550 / 2550
Intake:
IV fluids (Total) 800 / 800 2400 / 2400
IV piggybacks 50 / 50 150 / 150
Other:
Number of approximated MODERATE 3
amounts of urine
Lab Results
08/20/23 04:41
08/20/23 04:41
Physical Exam
-
General: No Acute Distress and AOx3
Abdomen: Soft, Non Distended and Tender (LLQ- mild)
Skin: Warm and Dry
--- NOTE | 2023-08-20 09:38 | W.PN.HOSP.TC ---
Today's Communication/Plan
-
Monitor vital signs see plan
Continue with antibiotics
Started on clears, if tolerates then fulls later
restart statin
Assessment / Plan
Assessment / Plan
General: Comfortable and Conversant
HEENT: Anicteric and Moist mucous membranes
Respiratory: Clear, no wheezing
Cardiac: S1/S2, Regular Rhythm
GI: Soft and Tender (mild RLQ)
Musculoskeletal: No Edema
Neuro: Awake, Alert, Oriented and Nonfocal/grossly intact
Psych: Calm
Sepsis secondary to Acute Diverticulitis
no bcx checked on admission; bcx pending
-Colorectal Surgery following
-now started on CLD;
-Continue Zosyn
will need eventual cscope in 4-6 weeks; patient aware.
Essential Hypertension
-Continue lisinopril with hold parameters
Hyponatremia
resolved
Hyperlipidemia
-restart atorvastatin
Diabetes Mellitus, Type II
-Hold metformin
-Monitor sugars and continue coverage insulin
A1c 10.3; need better management; patient aware. Advise him to see his pcp outpatient
Alcohol Use Disorder
-Continue thiamine and folic acid
-Continue alcohol withdrawal protocol
DVT proph: Lovenox
Code Status: Full Code
Anticipated Discharge: Within 24 hours
Subjective/Interval History
-
Date of Service: August 20, 2023
denies nausea
Objective Data
-
Labs:
Laboratory Results
08/20/23
04:41
WBC 10.7
Hgb 13.7
Hct 39.5
Plt Count 187
Sodium 136
Potassium 4.1
Chloride 106
Carbon Dioxide 23
BUN 9
Creatinine 0.6 L
Glucose 165 H
Calcium 8.4
Total Bilirubin 1.3
AST 19
ALT 16
Alkaline Phosphatase 59
Vital Signs:
Vital Signs
Temp Pulse Resp BP Pulse Ox
98.8 F 89 16 149/93 96
08/20/23 07:06 08/20/23 07:43 08/20/23 07:06 08/20/23 07:43 08/20/23 07:45
I&O
08/19/23 08/20/23 08/21/23
06:59 06:59 06:59
Intake Total 850 / 850 2550 / 2550
Balance 850 / 850 2550 / 2550
[2023-08-20 11:52] LABS: Glucose - Point of Care 243 mg/dl (70-99)
[2023-08-20] MEDS: NOVOLOG FLEXPEN-LOW RESISTANCE 2 UNITS SC (12:48)
[2023-08-20 15:38] VITALS: BP 125/78
[2023-08-20 16:36] LABS: Glucose - Point of Care 177 mg/dl (70-99)
[2023-08-20] MEDS: LOVENOX SC (17:47)
[2023-08-20 21:34] LABS: Glucose - Point of Care 203 mg/dl (70-99)
[2023-08-20] MEDS: MELATONIN PO (21:56)
[2023-08-20] MEDS: AMBIEN 5 MG PO (22:01)
[2023-08-20 23:13] VITALS: BP 134/90
[2023-08-21] MEDS: NSS 1000 IV (00:39)
[2023-08-21] MEDS: ZOSYN 50 IV ×2 (04:20→10:12)
[2023-08-21 04:57] LABS: % Basophils 0.5 % (0-2); % Eosinophils 2.4 % (0-6); % Immature Granulocytes 0.6 % (0-0.5); % Lymphocytes 24.1 % (20.5-51.1); % Monocytes 12.6 % (1.7-9.3); % Neutrophils 59.8 % (42.2-75.2); Absolute Basophils 0.1 10^3/uL (0-0.2); Absolute Eosinophils 0.2 10^3/uL (0-0.7); Absolute Immature Granulocytes 0.1 10^3/uL (0-0.05); Absolute Lymphocytes 2.3 10^3/uL (1.2-3.4); Absolute Monocytes 1.2 10^3/uL (0.1-0.6); Absolute Neutrophils 5.6 10^3/uL (1.4-6.5); Hematocrit 35.9 % (39.0-52.0); Hemoglobin 12.6 g/dL (13.0-18.0); Mean Corp Hgb Conc. 35.1 g/dL (33.0-37.0); Mean Corpuscular Hgb 31.3 pg (27.0-31.0); Mean Corpuscular Volume 89.3 fL (80.0-94.0); Mean Platelet Volume 9.7 fL (7.4-10.4); Nucleated Red Blood Cells % 0 % (-); Platelet Count 192 10^3/uL (130-400); Red Blood Cell Count 4.02 10^6/uL (4.70-6.10); Red Cell Dist. Width 11.6 % (11.5-14.5); White Blood Cell Count 9.4 10^3/uL (4.8-10.8)
[2023-08-21 05:28] LABS: ALT (SGPT) 13 U/L (0-50); AST (SGOT) 18 U/L (17-59); Albumin 2.8 g/dl (3.5-5.0); Alkaline Phosphatase 50 U/L (38-126); Blood Urea Nitrogen 8 mg/dl (9-20); Calcium 8.5 mg/dl (8.4-10.2); Carbon Dioxide 24 mmol/L (22-30); Chloride 104 mmol/L (98-107); Estimated Creatinine Clearance > 125 ml/min; Glucose 155 mg/dl (70-99); Sodium 137 mmol/L (135-145); Total Protein 5.3 g/dl (6.3-8.2); eGFR > 60.00
[2023-08-21 07:15] VITALS: BP 158/101
[2023-08-21 07:53] LABS: Glucose - Point of Care 135 mg/dl (70-99)
[2023-08-21] MEDS: THIAMINE INJECTION 200 MG IV (08:33)
[2023-08-21] MEDS: LIPITOR 20 MG PO (08:33)
[2023-08-21] MEDS: FOLVITE 1 MG PO (08:33)
[2023-08-21] MEDS: ZESTRIL 40 MG PO (08:33)
--- NOTE | 2023-08-21 09:31 | W.PN.HOSP.TC ---
Addendum entered and electronically signed by Quan Mooney MD 08/21/23 11:44:
Patient tolerated low residue diet. Will discharge patient home on antibiotics
Time of discharge 38 minutes
Original Note:
Today's Communication/Plan
-
Monitor vital signs and see plan
Advance diet to low res, if tolerates then discharge today
Continue antibiotics
Assessment / Plan
Assessment / Plan
General: Comfortable and Conversant
HEENT: Anicteric and Moist mucous membranes
Respiratory: Clear, no wheezing
Cardiac: S1/S2, Regular Rhythm
GI: Soft and Tender (mild RLQ)
Musculoskeletal: No Edema
Neuro: Awake, Alert, Oriented and Nonfocal/grossly intact
Psych: Calm
Sepsis secondary to Acute Diverticulitis
no bcx checked on admission; bcx pending
-Colorectal Surgery following
-Tolerating p.o., spoke with surgery and will advance diet to low res. If tolerates diet discharge today
-Continue Zosyn, switch to p.o. antibiotics on discharge
will need eventual cscope in 4-6 weeks; patient aware.
Essential Hypertension
-Continue lisinopril with hold parameters
Hyponatremia
resolved
Hyperlipidemia
-restart atorvastatin
Diabetes Mellitus, Type II
-Hold metformin
-Monitor sugars and continue coverage insulin
A1c 10.3; need better management; patient aware. Advise him to see his pcp outpatient
Alcohol Use Disorder
-Continue thiamine and folic acid
-Continue alcohol withdrawal protocol
DVT proph: Lovenox
Code Status: Full Code
Anticipated Discharge: Today
Subjective/Interval History
-
Date of Service: August 21, 2023
denies nausea
Objective Data
-
Labs:
Laboratory Results
08/21/23
04:16
WBC 9.4
Hgb 12.6 L
Hct 35.9 L
Plt Count 192
Sodium 137
Potassium 4.0
Chloride 104
Carbon Dioxide 24
BUN 8 L
Creatinine 0.6 L
Glucose 155 H
Calcium 8.5
Total Bilirubin 1.0
AST 18
ALT 13
Alkaline Phosphatase 50
Vital Signs:
Vital Signs
Temp Pulse Resp BP Pulse Ox
98.5 F 87 14 158/60 96
08/21/23 07:15 08/21/23 08:33 08/21/23 07:15 08/21/23 08:33 08/21/23 07:15
I&O
08/20/23 08/21/23 08/22/23
06:59 06:59 06:59
Intake Total 2550 / 2550 3520 / 3520
Balance 2550 / 2550 3520 / 3520
--- NOTE | 2023-08-21 10:22 | W.PN.CRS1 ---
Today's Communication / Plan
-
Advance to low residue
Okay for DC from CRS standpoint
Follow-up with me in 4 weeks
Assessment/Plan
-
53-year-old male with a PMH of HTN, HLD, daily EtOH (admits to being an alcoholic and drinking about 4 glasses of wine per day; he knows he should not but continues; has quit for period of 1 to 2 months without symptoms of withdrawal), prior episode
of diverticulitis 15 years ago who presents with acute sudden onset abdominal pain 4 days ago.� The pain was in the lower abdomen and radiated to the groin.� The pain initially got better but then returned on Thursday, so he went to see his PCP
yesterday.� He was recommended to be evaluated in the ED.� He denies any fevers, N/V, urinary symptoms, change in bowel habits.� In the ED, WBC was 13.6, CT showing acute severe diverticulitis with localized contained perforation as well as flecks
of air over the liver.� He was initially tachycardic at 120 but improved to the low 100s.� He has never had a colonoscopy.� He had a Cologuard test in 2020 which was negative; treated non-op with IV abx and bowel rest; improved
AFVSS; abdomen s/nd/nt
WBC 9.4 from 10.7
� Okay for low residue, continue for 2 weeks
� Pain control, recommend Tylenol and Toradol, reserve narcotics for breakthrough
� Agree with IV Zosyn, recommend 7-day course total
� OOB/IS
� Appreciate hospitalist
Dispo�okay for DC from CRS standpoint if tolerating low residue without pain; follow-up with me in 4 weeks
Subjective Data
Subjective Data
Date of Service: August 21, 2023
No overnight events.
Pain controlled.
Denies nausea/vomiting. Tolerating full liquids.
+flatus +BMs +voiding
Pt is OOB.
Objective Data
-
Vital Signs
Temp Pulse Resp BP Pulse Ox
98.5 F 87 14 158/60 96
08/21/23 07:15 08/21/23 08:33 08/21/23 07:15 08/21/23 08:33 08/21/23 07:15
Intake & Output
08/20/23 08/21/23 08/22/23
06:59 06:59 06:59
Intake Total 2550 / 2550 3520 / 3520
Balance 2550 / 2550 3520 / 3520
Intake:
Oral fluids 1020 / 1020
IV fluids (Total) 2400 / 2400 2300 / 2300
IV piggybacks 150 / 150 200 / 200
Other:
Number of approximated MODERATE 3 2
amounts of urine
Lab Results
08/21/23 04:16
08/21/23 04:16
Physical Exam
-
General: No Acute Distress and AOx3
HEENT: Grossly Normal
Abdomen: Soft, Non Distended, Non Tender, No Guarding and No Rebound
Skin: Warm and Dry
--- NOTE | 2023-08-21 11:44 | W.DCSUMMARY ---
Discharge Summary
Discharge Data
Date of Admission: 08/18/23
Date of Discharge: 08/21/23
-
Pending Results: No
Hospital Course
53-year-old male with past medical history of essential hypertension, diabetes mellitus, hyperlipidemia, alcohol use disorder came to the hospital with abdominal pain secondary to acute diverticulitis. CT scan was consistent with acute severe
diverticulitis with localized contained perforation. Patient was seen by colorectal surgery for hospitalization. Patient was treated with conservative measures including fluids, antibiotics and bowel rest. Once patient's symptoms were improving
he was then started on diet. He was able to tolerate low residue diet prior to the discharge. Initially was on IV antibiotic which was later transitioned to oral antibiotics. Once patient was able to tolerate low residue diet, he was then
discharged home with instructions to follow-up with all his physicians outpatient.
Discharge Plan
-
Patient Disposition: Home (Routine Discharge)
Discharge Diagnosis/Procedures: Acute severe diverticulitis with localized contained perforation
Diabetes mellitus
Essential hypertension
Diet: Low Residue
Activity: As tolerated
Driving Restrictions: As prior to admission
Bathing Restrictions: None
Referrals:
Eladio Garner MD [Active] - in three to four weeks
Adair Clayton DO [Family Provider] - in less than 1 week
Jose David Medrano MD [Active] - in one month
Prescriptions:
New
folic acid 1 mg Tablet
1 mg PO DAILY Qty: 30 0RF
acetaminophen 325 mg Tablet
650 mg PO Q4HPRN PRN (Reason: mild pain/ fever>100.5F) Qty: 0 0RF
thiamine HCl (vitamin B1) 100 mg Tablet
100 mg PO BID Qty: 60 0RF
cefdinir 300 mg capsule
300 mg PO BID Qty: 16 0RF
metronidazole 500 mg tablet
500 mg PO Q8H 8 Days Qty: 24 0RF
Continued
atorvastatin [Lipitor] 20 mg Tablet
20 mg PO DAILY
lorazepam 0.5 mg Tablet
0.5 mg PO DAILYPRN PRN (Reason: anxiety)
lisinopril 40 mg Tablet
40 mg PO DAILY
metformin 500 mg Tablet Extended Release 24 Hr
500 mg PO DAILY
Discontinued
ibuprofen [Advil] 200 mg Tablet
400 mg PO Q6H PRN (Reason: mild pain)
Advil PM 200-38 mg Tablet
1 cap PO HSPRN PRN (Reason: sleep)
Discharge Orders:
Discharge Patient (As Directed); Ordered 08/21/23
Ordered By: Quan Mooney
--- NOTE | 2023-08-21 11:59 | CM ---
Chart reviewed. Spoke with pt
Pt for d/ today
Reports has a ride to home
Plan - discharge to home - no needs
== END 2023-08-21 15:30 | disposition home or self-care (01) | DRG 872 ==
LOC: 2 SOUTH 21:00
PROVIDERS: Emergency Medicine; Physician Assistant Medical; ADMITTING PHYSICIAN Internal Medicine; ATTENDING PHYSICIAN Internal Medicine; CONSULT PHYSICIAN Surgery; EMERGENCY PHYSICIAN Emergency Medicine; FAMILY PHYSICIAN Student in an Organized Health Care Education/Training Program
DX: A41.9 Sepsis, unspecified organism (principal); K57.20 Diverticulitis of large intestine with perforation and abscess without bleeding; E87.1 Hypo-osmolality and hyponatremia; I10 Essential (primary) hypertension; E11.9 Type 2 diabetes mellitus without complications; F10.10 Alcohol abuse, uncomplicated; Z79.84 Long term (current) use of oral hypoglycemic drugs; Z87.891 Personal history of nicotine dependence
CPT/HCPCS: 74177; 80053; 81003; 82962; 83036; 83735; 84100; 85025; 85027; 85610; 85730; 87040; 96360; 99285; Q9967

== ENCOUNTER → 2023-09-18 14:12 | Outpatient (REF) | payer SELFPAY | LOC: HWRAD 14:12 | PROVIDERS: ATTENDING PHYSICIAN Student in an Organized Health Care Education/Training Program | DX: I70.90 Unspecified atherosclerosis (principal) | CPT/HCPCS: 75571 ==

== ENCOUNTER → 2023-10-26 06:21 | Day surgery (SDC) | payer BC, SELFPAY ==
[2023-10-26 08:32] LABS: Glucose - Point of Care 123 mg/dl (70-99)
== END ==
LOC: GI 06:21
PROVIDERS: ATTENDING PHYSICIAN Surgery
DX: Z12.11 Encounter for screening for malignant neoplasm of colon (principal); K57.30 Diverticulosis of large intestine without perforation or abscess without bleeding; D12.0 Benign neoplasm of cecum; D12.8 Benign neoplasm of rectum; K63.5 Polyp of colon; K64.4 Residual hemorrhoidal skin tags; K64.8 Other hemorrhoids; Z80.0 Family history of malignant neoplasm of digestive organs
CPT/HCPCS: 45385; 45380; 88305; 82962; 88341; 88342

== ENCOUNTER → 2024-12-26 08:37 | Outpatient (REF) | payer OTHER, SELFPAY | LOC: PAVMRI 08:37 | PROVIDERS: ATTENDING PHYSICIAN Family Medicine | DX: M54.2 Cervicalgia (principal); M54.12 Radiculopathy, cervical region; R20.2 Paresthesia of skin | CPT/HCPCS: 72141 ==